=== PATIENT | female | born 1975 | race Caucasian/White ===

== ENCOUNTER → 2017-04-09 | Outpatient (CLI) | payer OTHER ==
--- NOTE | 2017-04-09 09:47 | RAD ---
Chest, 2 views, 04/09/2017: History: Chest congestion, cough Comparison is made to a study from 10/02/2013. The heart size and pulmonary vascularity are normal. No pulmonary infiltrates are seen. No significant pleural fluid is evident. IMPRESSION: No acute cardiopulmonary abnormality is detected.
== END | disposition home or self-care (01) ==
LOC: DXRADRC 08:48
PROVIDERS: ATTEND Physician Assistant Medical
DX: R09.89 Other specified symptoms and signs involving the circulatory and respiratory systems (principal)
CPT/HCPCS: 71020